=== PATIENT | male | born 1955 | race American Indian/Alaskan Native ===

== ENCOUNTER 2018-06-28 07:11 | Emergency (ER) | payer MEDICARE ==
[2018-06-28 07:23] VITALS: BP 152/95
[2018-06-28 07:56] LABS: Basophils # (Auto) 0.1 K/mm3 (0.0-0.1); Basophils % (Auto) 0.8 % (0.0-1.8); Eosinophils # (Auto) 0.1 K/mm3 (0.0-0.4); Eosinophils % (Auto) 1.7 % (0.0-4.3); Hematocrit 47.1 % (35.5-45.6); Hemoglobin 15.9 gm/dl (11.8-15.2); Lymphocytes # (Auto) 2.6 K/mm3 (1.2-5.4); Lymphocytes % (Auto) 33.7 % (13.4-35.0); Mean Corpuscular HGB Conc 34 % (32-34); Mean Corpuscular Volume 92 fl (84-94); Monocytes % (Auto) 12.7 % (0.0-7.3); Platelet Count 224 K/mm3 (140-440); Red Blood Count 5.15 M/mm3 (3.65-5.03); Red Cell Distribution Width 13.6 % (13.2-15.2)
--- NOTE | 2018-06-28 08:14 | XRay Report ---
AP CHEST : 06/28/18 07:11:00 CLINICAL: Chest pain. COMPARISON:None FINDINGS: The heart is normal size. The left pulmonary artery is prominent but the pulmonary vasculature is otherwise normal. Elevation of the left hemidiaphragm and mild subsegmental atelectasis of the left lower lobe. The lungs are otherwise clear. No tubes or lines. The bones and soft tissues are unremarkable. IMPRESSION: Elevation of the left hemidiaphragm and left lower lobe subsegmental atelectasis.No CHF.
[2018-06-28 08:16] LABS: BUN/Creatinine Ratio 17; Blood Urea Nitrogen 19 mg/dL (9-20); Calcium 9.6 mg/dL (8.4-10.2); Hemolysis Index 14
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
== END 2018-06-28 09:30 | disposition home or self-care (01) ==
LOC: ED 07:11
DX: M79.601 Pain in right arm (principal); R07.89 Other chest pain; R20.2 Paresthesia of skin; Z88.6 Allergy status to analgesic agent; Z88.8 Allergy status to other drugs, medicaments and biological substances
CPT/HCPCS: 36415; 71045; 80048; 84484; 85025; 93005; 93010